=== PATIENT | female | born 1955 | race Caucasian/White ===

== ENCOUNTER → 2017-03-10 | Outpatient (CLI) | payer OTHER ==
[~2017-03-10] VITALS: Ht 152.4 cm; Wt 48.2 kg
[~2017-03-10] MED LIST: CHLORHEXIDINE GLUCONATE 2 % 1 PACK (2 CLOTHS) TOPICAL PRN; CHOLTAB5 PO; DEXAMETHASONE SOD PHOS 4 MG/ML VIAL IV ONE; DICY20TA10 PO; DO NOT ADM ANY ANTICOAGULANT DRUGS PRN; ESMOLOL HCL 100 MG/10 ML VIAL IV ONE; LACTATED RINGER'S 1000 ML IV PRN; LISI-519 PO; LORA0.5T PO; METOPROLOL TARTRATE 25 MG TAB PO PRN; POVIDONE IODINE 5% (ANTISEPSIS KIT) 4 APPLICATIONS EACH NARE PRN; SODIUM CHLORID 0.9% 500 ML IV PRN; VIST25CA PO
--- NOTE | 2017-03-10 16:01 | PD.PROCEDR ---
GI Procedure PROCEDURE PERFORMED Endoscopic ultrasound INDICATION FOR PROCEDURE Possible underlying pancreatic mass PROCEDURE: The procedure, risks and benefits were discussed with Ms. Friedman and informed consent was obtained. Anesthesia sedated her with Diprivan. She was placed in the left lateral decubitus position. Endoscopic ultrasound: The Pentax videoscope was introduced through the oropharynx and advanced to the second portion of the duodenum. FINDINGS: The pancreas appeared to be unremarkable from head to tail with no distinct mass noted or any irregularity in the parenchyma it did appear homogeneous the pancreatic duct appeared to be somewhat dilated to about 3.5 mm from head to tail No lymphadenopathy was seen Common bile duct appeared to be normal with no filling defects No ampullary mass No gallbladder was seen ESTIMATED BLOOD LOSS: None SPECIMENS REMOVED: None COMPLICATIONS: None IMPRESSION: Mildly dilated pancreatic duct PLAN: Patient follow-up with Dr. Gillespie Would recommend a PET scan will defer to Dr. Gillespie Would recommend repeat CEA and CA 19-9 in 2 months will defer to Manav Rizzo MD Mar 10, 2017 16:01
[2017-03-10 17:30] VITALS: BP 134/72; PULSE 79; RESP 18; TEMP 97; O2SAT 18
--- NOTE | 2017-03-11 10:18 | EKG ---
Date Performed: 03/10/2017 Time Performed: 13:56:49 PTAGE: 61 years EKG: Sinus rhythm NORMAL ECG NO PREVIOUS TRACING DOCTOR: Shailesh Simon Interpretating Date/Time 03/11/2017 10:17:19
== END ==
LOC: HSDC 13:19
PROVIDERS: ATTEND Internal Medicine Gastroenterology
DX: K86.89 Other specified diseases of pancreas (principal); R14.0 Abdominal distension (gaseous); K29.70 Gastritis, unspecified, without bleeding; I10 Essential (primary) hypertension; K58.9 Irritable bowel syndrome, unspecified; F17.210 Nicotine dependence, cigarettes, uncomplicated
CPT/HCPCS: 00731; 43259; 93005; J1100